=== PATIENT | male | born 1950 | race Caucasian/White ===

== ENCOUNTER 2024-11-20 17:12 | Emergency (ER) | payer OTHER, SELFPAY ==
[2024-11-20 17:13] VITALS: BMI 22.5
[2024-11-20 17:57] VITALS: BP 122/82; PULSE 120; RESP 18; TEMP 36.7; O2SAT 95
--- NOTE | 2024-11-20 17:57 | XR_ITS ---
Examination: PA lateral chest 2 views Technique: Upright PA lateral chest 2 views Date and time: November 20, 2024, 1810 hrs., Comparison 12/01/2021. Indications: Dizziness hypertension today. Findings: COPD with prominent hyperexpansion Scarring at the apices Scarring in the right lower lobe Pleural scarring left base Prominent central pulmonary arteries. Normal heart size. No pulmonary edema or lobar pneumonia. Prominent osteopenia. Impression: COPD Extensive pulmonary scarring. Pulmonary artery hypertension. No lobar pneumonia or pulmonary edema.
--- NOTE | 2024-11-20 17:57 | EKG_ITS ---
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
--- NOTE | 2024-11-20 17:59 | PD.EDRME ---
Rapid Medical Screening Exam RME Arrival date/time: 11/20/24 17:12 Marta 4-year-old male presents emergency room today complaint of elevated blood sugar patient ports he was told his sugar was over 600 at the clinic Chief Complaint: General Adult/Misc Complain Vital signs: Vital Signs Temperature 98.0 F 11/20/24 17:57 Pulse Rate 120 H 11/20/24 17:57 Respiratory Rate 18 11/20/24 17:57 Blood Pressure 122/82 11/20/24 17:57 Pulse Oximetry (%) 95 11/20/24 17:57 Oxygen Delivery Method Room Air 11/20/24 17:57
[2024-11-20 18:34] LABS: Collection Type, Urine Clean Catch
[2024-11-20 18:45] LABS: Bacteria,Urine Rare; Bilirubin,Urine Negative (Negative); Blood,Urine 2+ (Negative); Budding Yeast,Urine Present; Clarity,Urine Clear (Clear/Hazy); Color,Urine Lt-Yellow (Lt Yel-Yel); Glucose, Urine 4+ (Negative); Ketones,Urine Negative (Negative); Leukocyte Esterase,Urine Positive (Negative); Nitrite,Urine Negative (Negative); PH,Urine 6.5 (5.0-7.0); Protein,Urine Negative (Neg - Trace); RBC,Urine 86 /hpf (0-3); Specific Gravity,Urine 1.030 (1.001-1.035); Squamous Epithelial Cell,Urine < 1 /hpf (0-5); Urobilinogen,Urine Negative mg/dL (0.0-1.0); WBC,Urine 32 /hpf (0-5)
[2024-11-20 18:46] LABS: Culture Indicated,Urine Yes
[2024-11-20 19:02] LABS: Basophils # (Auto) 0.1 Thou/mm3 (0.0-0.2); Basophils % (Auto) 1 % (0-2.5); Eosinophils # (Auto) 0.5 Thou/mm3 (0.0-0.5); Eosinophils % (Auto) 5 % (0-10); Hematocrit 37.0 % (41.0-53.0); Hemoglobin 12.2 g/dL (13.5-16.0); Immature Granulocytes Auto 0.05 Thou/mm3 (0.00-0.00); Lymphocytes # (Auto) 1.9 Thou/mm3 (1.0-4.8); Lymphocytes % (Auto) 20 % (10-50); Mean Corpuscular HGB Conc 33.0 g/dl (31.0-37.0); Mean Corpuscular Hemoglobin 26.1 pg (25.0-35.0); Mean Corpuscular Volume 79 fL (80-100); Monocytes # (Auto) 0.9 Thou/mm3 (0.0-0.8); Monocytes % (Auto) 9 % (0-12); Neutrophils # (Auto) 6.2 Thou/mm3 (1.8-7.7); Neutrophils % (Auto) 65 % (37-80); Nucleated Red Blood Cell # 0.00 Thou/mm3 (0.00-0.00); Nucleated Red Blood Cell % 0 /100 WBC (0); Platelet Count 436 Thou/mm3 (140-440); RDW Standard Deviation 38.5 fL (35.1-43.9); Red Blood Count 4.67 Miln/mm3 (4.50-5.90); White Blood Count 9.6 Thou/mm3 (3.8-10.6)
[2024-11-20 19:03] LABS: Glucose Estimated Average 332 mg/dL (80-131); Hemoglobin A1C 13.2 % Hgb (4.8-6.0)
[2024-11-20 19:04] LABS: Beta Hydroxybutyrate 0.1 mmol/L (<0.6)
[2024-11-20 19:05] LABS: Base Excess, Venous 2 (-3-3); O2 Saturation, Venous 91 % (96-97); PCO2, Venous 36 mmHg (36-56); PO2, Venous 71 mmHg (15-58); pH, Venous 7.46 (7.33-7.66)
[2024-11-20 19:11] LABS: INR 1.0 (0.9-1.3); Partial Thromboplastin Time 24.1 Seconds (22.0-36.0); Prothrombin Time 10.8 Seconds (9.0-12.2)
[2024-11-20 19:13] LABS: B-Type Natriuretic Peptide 27 pg/mL (0-100)
[2024-11-20 19:26] LABS: Alanine Aminotransferase < 7 U/L (10-49); Albumin, Serum 4.5 gm/dL (3.4-4.8); Albumin/Globulin Ratio 1.4 (1.2-2.2); Alkaline Phosphatase 74 U/L (46-116); Anion Gap 13 (7-16); Aspartate Amino Transferase 10 U/L (0-34); BUN/Creatinine Ratio 10 Ratio (12-20); Bilirubin,Total 0.3 mg/dL (0.3-1.2); Blood Urea Nitrogen 17 mg/dL (9-23); Calcium 10.6 mg/dL (8.3-10.6); Calcium (Corrected) 10.6 mg/dL (8.5-10.1); Carbon Dioxide 24.2 mMol/L (20.0-31.0); Chloride 92 mMol/L (98-107); Creatinine (Component) 1.7 mg/dL (0.6-1.3); Estimated Creatinine Clearance 46.6 mL/min (>60); Globulin 3.3 gm/dL (2.3-3.5); Magnesium 1.8 mg/dL (1.6-2.6); Osmolality,Calculated 284 (275-295); Potassium 4.2 mMol/L (3.4-5.1); Sodium 129 mMol/L (136-145); Total Protein 7.8 gm/dL (5.7-8.2); Troponin I < 0.020 ng/mL (0.0-0.045); eGFR 42 See Note
[2024-11-20 19:30] LABS: Glucose 524 mg/dL (74-106)
--- NOTE | 2024-11-20 20:20 | PD.EDRECHK ---
ED Recheck Abnl Lab Rx-RME/HPI General Chief Complaint: General Adult/Misc Complain Stated Complaint: BLOOD SUGAR 600 x 5 DAYS Time Seen by Provider: 11/20/24 19:36 Arrival date/time: 11/20/24 17:12 RME / HPI RME / HPI narrative: 11/20/24 17:12 Marta 4-year-old male presents emergency room today complaint of elevated blood sugar patient ports he was told his sugar was over 600 at the clinic ------ See MDM for Dr. Joaquin's HPI documentation. Related Data Previous Rx's ?Medication ?Instructions ?Recorded sitagliptin phosphate 50 1 tab PO BID #60 tabs 11/21/24 mg-metformin 1,000 mg tablet (Janumet) Allergies Allergy/AdvReac Type Severity Reaction Status Date / Time No Known Allergies Allergy Verified 11/20/24 17:14 Review of Systems Review of Systems Systems Reviewed: All systems reviewed, normal except as documented Past Medical History Past Medical History ENDOCRINE: Negative Diabetes Mellitus Type 2 Social History SMOKING STATUS: Never smoker ED Exam Narrative Physical exam: See MDM for Dr. Joaquin's physical exam documentation. Course Quality Measures none Orders Category Date Time Status Bedside Blood Glucose NOW Care 11/20/24 17:57 Completed EKG (ED ONLY) *Do not use* NOW Care 11/20/24 17:57 Completed Glucose [Bedside Blood Glucose] NOW Care 11/20/24 21:37 Completed Glucose [Bedside Blood Glucose] NOW Care 11/20/24 23:37 Completed EKG (ED Only) Stat Exams 11/20/24 17:57 Draft XR chest 2V Stat Exams 11/20/24 17:57 Completed A1C [Glycohemoglobin w (eAG)] Stat Lab 11/20/24 18:25 Completed B-Type Natriuretic Peptide Stat Lab 11/20/24 18:25 Completed Beta Hydroxybutyrate Stat Lab 11/20/24 18:25 Completed CBC Stat Lab 11/20/24 18:25 Completed Comprehensive Metabolic Panel Stat Lab 11/20/24 18:25 Completed Magnesium Stat Lab 11/20/24 18:25 Completed Partial Thromboplastin Time Stat Lab 11/20/24 18:25 Completed Prothrombin Time with INR Stat Lab 11/20/24 18:25 Completed Troponin I Stat Lab 11/20/24 18:25 Completed Urinalysis, C/S if Indicated Stat Lab 11/20/24 18:18 Completed Urine Culture Stat Lab 11/20/24 18:18 Completed VBG [Venous Blood Gas] Stat Lab 11/20/24 18:25 Completed Insulin Regular Med 11/20/24 19:37 Discontinued 15 unit SC X1 ONE Insulin Regular Med 11/20/24 21:55 Discontinued 15 unit SC X1 ONE Vital Signs Vital signs: Vital Signs Temperature 98.0 F 11/20/24 17:57 Pulse Rate 120 H 11/20/24 17:57 Respiratory Rate 18 11/20/24 17:57 Blood Pressure 122/82 11/20/24 17:57 Pulse Oximetry (%) 95 11/20/24 17:57 Oxygen Delivery Method Room Air 11/20/24 17:57 Recheck / Abnormal Lab / Rx MDM Narrative MDM Narrative:: This section includes all my notes and documentations, including HPI, PE, and ED course. Vinicio Joaquin MD HPI: 74yo male sent by PCP high blood sugar being high. No nausea, vomiting, or abdominal pain. No other complaints reported. ROS: All negative except as documented in HPI. Physical Exam: General: Alert and oriented. No acute distress when remaining still. Eyes: Conjunctivae and lids clear. ENT: No nasal congestion. Neck: Supple. Heart: RRR. Lungs: No respiratory distress. Good air movement. No rhonchi, wheezing, rales. Abdomen: Soft and nontender. Normal bowel sounds. No distension. No rebound or guarding. Back: No CVA tenderness. Skin: Warm and dry. Neuro: Alert and oriented X 3. I reviewed all diagnostic test results. My interpretation of the EKG is sinus tachycardia with nonspecific ST-T changes. My interpretation of the chest x-ray is NAD. Blood and urine tests remarkable for Glucose 524. At this point, diagnoses include: Hyperglycemia Treatment here included: Insulin Significant improvement noted. Recommended outpatient management. Based on my best medical judgment, made decision no further evaluation or treatment indicated at this time. Patient understands and agrees to the discharge instructions customized and printed, see below. Discharge Instructions from Dr. Joaquin printed for you: 1. After evaluation, you are treated for severely uncontrolled diabetes. 2. Instead of taking metformin, take Janumet twice daily as prescribed. Continue your glyburide. 3. In your diet, we need to decrease carbs (from bread, rice, pasta, sugar, etc.). And we need to exercise every single day. For good hydration, increase oral fluid and maintain clear urine. If dark or yellow, increase oral fluid. 4. See a private doctor on 11/24/2024 for recheck and further care. Ask to review all test results and official radiology reports, to make sure you receive all necessary follow-ups and monitoring. Ask for help with better management of your diabetes. You may need to start insulin soon. 5. Seek immediate medical care with worsening or with any concerns. Vinicio Joaquin MD Patient data External records reviewed:: [facility] previous records (Per chart review, patient has no previous ED visits or admissions to this facility.) Clinical information provided by:: patient Social determinants that could affect healthcare access:: none Patient has the following chronic illnesses:: none How is presenting disease/condition affected by chronic disease/condition?: no chronic disease Evaluation data The following diagnostics were reviewed and interpreted by me:: lab results, radiology exam(s) and EKG tracing(s) (My interpretation of the EKG is: Sinus tachycardia (118 bpm) with nonspecific ST-T changes. Vinicio Joaquin MD) Lab and/or radiology exams considered but not ordered:: none Interpretation Summary: I reviewed all diagnostic test results. My interpretation of the EKG is sinus tachycardia with nonspecific ST-T changes. My interpretation of the chest x-ray is NAD. Blood and urine tests remarkable for Glucose 524. 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 wants to give the 15 un Insulin Human Regular (Insulin Hum Regular 1 Unit/0.01 Ml (Per Unit)) 15 unit SC X1 ONE Stop: 11/20/24 21:56 Last Admin: 11/20/24 22:47 Dose: 15 unit Documented By: CVL Co-signed By: CARMELO Insulin Consultations Consultation(s) initiated? (list below): No Diagnosis Recheck Differential Diagnosis: warfarin-induced coagulopathy and other (Hyperglycemia, DKA) Most likely diagnosis given after review of the tests above:: Hyperglycemia Admission Indicated Admission indicated?: not indicated Explain why admission is indicated or not indicated:: With significant improvement and no condition needing emergent intervention, there was no indication for admission. Admission Request Was there a request for admission?: No Disposition Plan Disposition Plan: Discharge Discharge Attestation Discharge Attestation: The patient and all family members were given an opportunity to ask questions and understood the discharge instructions. Discharge instructions specifically effects, indications for sooner follow up or return to the emergency department, and the expected course of current diagnosis. Patient condition: Stable Discharge Plan Plan Patient Disposition: HOME (Self Care) Prescriptions/Referrals Prescriptions/Med Rec: New Janumet 50-1,000 mg tablet 1 tab PO BID Qty: 60 0RF Referrals: Princess Guerrero FNP [Primary Care Provider] - In 1 week Problem List Clinical Impression: Hyperglycemia Patient/Caregiver Discharge Instructions Discharge Activity: activity as tolerated Education Materials: ED Diabetes with High Blood Sugar Additional Instructions: Discharge Instructions from Dr. Joaquin printed for you: 1. After evaluation, you are treated for severely uncontrolled diabetes. 2. Instead of taking metformin, take Janumet twice daily as prescribed. Continue your glyburide. 3. In your diet, we need to decrease carbs (from bread, rice, pasta, sugar, etc.). And we need to exercise every single day. For good hydration, increase oral fluid and maintain clear urine. If dark or yellow, increase oral fluid. 4. See a private doctor on 11/24/2024 for recheck and further care. Ask to review all test results and official radiology reports, to make sure you receive all necessary follow-ups and monitoring. Ask for help with better management of your diabetes. You may need to start insulin soon. 5. Seek immediate medical care with worsening or with any concerns. Print Language: [place] Stand Alone Forms: Miranda Award Info., Patient Portal Info Letter
[2024-11-20] MEDS: INSULIN HUM REGULAR 1 UNIT/0.01 ML (PER UNIT) 15 UNIT SC ×2 (20:24→22:47)
[2024-11-21 00:49] VITALS: BP 134/88; PULSE 105; RESP 18; TEMP 36.7; O2SAT 98
== END 2024-11-21 00:51 | disposition home or self-care (01) ==
PROVIDERS: Nurse Practitioner Primary Care; Emergency Provider Emergency Medicine; PCP Student in an Organized Health Care Education/Training Program
DX: R73.9 Hyperglycemia, unspecified (principal)
CPT/HCPCS: 36415; 71046; 80053; 81001; 82010; 82803; 83036; 83735; 83880; 84484; 85025; 85610; 85730; 87086; 93005; 99284; J1815

== ENCOUNTER → 2024-12-05 | Outpatient (CLI) | payer OTHER, SELFPAY ==
--- NOTE | 2024-12-05 13:30 | XR_ITS ---
Examination: CT chest, without intravenous contrast. Sagittal and coronal 2-D reconstructions. Exam date and time: December 05, 2024 1354 hours, comparison March 17, 2022 INDICATIONS: Coughing several years with diagnosis COPD CTDI:vol (mGy) 10.4 DLP: (mGycm) 126 Technique: Multiple 3.0 mm axial sections of the chest to been obtained. Bone and lung density settings are obtained. Sagittal and coronal 2-D reconstructions have been obtained. Low dose protocols were performed. One or more of the following dose reduction techniques were used; automated exposure control, adjustment of the mA and/or KV according to patient size, use of iterative reconstruction technique. 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 cm No paratracheal tracheobronchial or bronchopulmonary adenopathy COPD with areas of airspace destruction Larger nodule in the right lung on the current study compared with the prior exam, measuring 9 mm compared to 4 mm Interval spiculated pulmonary mass in the left upper lobe, measuring 23 mm 3 mm pulmonary nodule right upper lobe No pneumonia or pulmonary edema Again identified cavitary parenchymal disease in the right lower lobe IMPRESSION: Again noted COPD with cavitary parenchymal disease in the right lower lobe Progression of pulmonary nodules as above including interval 23 mm nodule with spiculated margins in the left upper lobe, lung cancer, pulmonary nodular metastatic disease included in the differential
--- NOTE | 2024-12-05 14:00 | XR_ITS ---
Examination: CT soft tissue neck, without intravenous contrast. 2-D coronal reconstructions. 2-D sagittal reconstructions. Date and time of exam :December 02, 2024 1354 hours INDICATIONS: Laryngitis neck pain several weeks. CTDI: vol (mGy):15.8 DLP: (mGycm):4067 Technique: 1.25 mm axial sections of the neck of the obtained. Coronal and sagittal reconstructions have been obtained. Low dose protocols were performed. One or more of the following dose reduction techniques were used; automated exposure control, adjustment of the mA and/or KV according to patient size, use of iterative reconstruction technique. Findings: Symmetrical optic globes Symmetrical nasopharynx oropharynx No pathologic cervical lymphadenopathy. Symmetrical submandibular glands Calcified nodule in the left parotid gland measuring 11 mm The larynx appears normal Epiglottis is not thickened Advanced degenerative disc disease C5-C6 C6-C7 COPD with areas of airspace destruction at the apices Spiculated pulmonary mass at the left apex and 23 mm and 4 mm spiculated nodule in the right upper lobe IMPRESSION: No pathologic cervical lymphadenopathy Calcified nodule in the left parotid gland 11 mm, recommend MRI soft tissue neck follow-up pre and postcontrast follow-up Spiculated pulmonary mass left apex 23 mm, recommend CT chest post intravenous contrast follow-up
== END | disposition home or self-care (01) ==
LOC: CCTX 13:04
PROVIDERS: PCP Internal Medicine; Referring Provider Internal Medicine Critical Care Medicine; Visit Provider Internal Medicine Critical Care Medicine
DX: R91.8 Other nonspecific abnormal finding of lung field (principal); R22.1 Localized swelling, mass and lump, neck
CPT/HCPCS: 70490; 71250